=== PATIENT | female | born 1965 | race African-American/Black ===

== ENCOUNTER 2020-10-26 23:11 | Inpatient (IN) | payer MEDICARE, MEDICAID ==
[~2020-10-26] VITALS: Ht 170.2 cm; Wt 145.3 kg
[2020-10-26] MEDS ORDERED: LEVETIRACETAM 1000MG PREMIX 100 ML IV ONE (23:45)
[2020-10-27 00:38] LABS: BASOPHILS % 0.5 % (0.0-2.0); EOSINOPHILS % 0.6 % (0.0-5.0); HEMATOCRIT. 32.5 % (36.0-48.0); HEMOGLOBIN. 10.6 g/dL (12.0-16.0); LYMPHOCYTES % 8.5 % (20.0-50.0); MEAN CORPUSCULAR HEMOGLOBIN 26.9 pg (28.0-32.0); MEAN CORPUSCULAR VOLUME 82.2 fL (81.0-99.0); MEAN PLATELET VOLUME 7.6 fl (7.4-10.4); NEUTROPHILS % 83.4 % (40.0-76.0); PLATELET 374 x1000/uL (130-400); RED BLOOD CELL COUNT 3.95 mill/uL (4.2-5.4); RED CELL DISTRIBUTION WIDTH 16.5 % (11.6-14.6)
[2020-10-27 00:41] LABS: CHLORIDE 109 mEq/L (98-107)
[2020-10-27 00:48] LABS: ETHANOL BLOOD < 10 mg/dL
[2020-10-27 01:02] LABS: CLARITY URINE CLEAR (CLEAR); COLOR URINE DARK YELLOW (YELLOW); KETONES URINE 1+ (NEGATIVE); LEUKOCYTE ESTERASE URINE TRACE (NEGATIVE); NITRITE URINE NEGATIVE (NEGATIVE); OCCULT BLOOD URINE TRACE (NEGATIVE); PROTEIN URINE 2+ (NEGATIVE); SPECIFIC GRAVITY URINE 1.026 (1.005-1.030)
[2020-10-27 03:45] LABS: *AMPHETAMINES SCREEN URINE NEGATIVE (NEGATIVE); *BARBITURATES SCREEN URINE NEGATIVE (NEGATIVE); *BENZODIAZEPINES SCREEN URINE PRESUMTIVE POSITIVE (NEGATIVE); *COCAINE SCREEN URINE NEGATIVE (NEGATIVE); CANNABINOID URINE SCREEN NEGATIVE (NEGATIVE); METHADONE URINE SCREEN NEGATIVE (NEGATIVE); OPIATES URINE SCREEN PRESUMTIVE POSITIVE (NEGATIVE); PHENCYCLIDINE URINE SCREEN NEGATIVE (NEGATIVE)
[2020-10-27] MEDS ORDERED: APIX5TAB PO (05:56)
[2020-10-27] MEDS ORDERED: LEVO50TA PO (05:56)
[2020-10-27] MEDS ORDERED: ACETAMINOPHEN 325MG TABLET PO PRN ×2 (06:00)
[2020-10-27] MEDS ORDERED: ONDANSETRON HCL 4MG/2ML INJ IV PRN (06:00)
[2020-10-27] MEDS: LEVOTHYROXINE SODIUM 50MCG TABLET PO SCH (06:30)
[2020-10-27] MEDS ORDERED: APIXABAN 5 MG TABLET PO SCH (09:00)
[2020-10-27 13:00] VITALS: BP 189/93
[2020-10-27] MEDS ORDERED: HYDRALAZINE 20MG/ML VIAL IV PRN (13:15)
[2020-10-27] MEDS: APIXABAN 5 MG TABLET PO SCH ×2 (13:15→22:05)
[2020-10-27] MEDS ORDERED: LOSA100T32 PO (13:29)
[2020-10-27] MEDS ORDERED: METO-539 PO (13:29)
[2020-10-27] MEDS ORDERED: HYDRALAZINE HCL 25MG TABLET PO PRN (13:30)
[2020-10-27] MEDS: LOSARTAN POTASSIUM 100 MG TABLET PO SCH (13:44)
[2020-10-27] MEDS: METOPROLOL TARTRATE 50MG TABLET PO SCH ×2 (14:02→22:05)
[2020-10-27] MEDS ORDERED: NIFE90TA47 PO (17:19)
[2020-10-27] MEDS: HYDRALAZINE 20MG/ML VIAL IV PRN (19:03)
[2020-10-27 20:00] VITALS: BP_SYST 124; BP_SYST 179; BP_DIAS 94; BP_DIAS 98
[2020-10-27] MEDS: LEVETIRACETAM 500MG TABLET PO SCH (22:47)
[2020-10-28] VITALS: BP 154/89
[2020-10-28 04:00] VITALS: BP 169/60
[2020-10-28] MEDS: HYDRALAZINE 20MG/ML VIAL IV PRN ×3 (04:26→17:26)
[2020-10-28] MEDS: LEVOTHYROXINE SODIUM 50MCG TABLET PO SCH (05:40)
[2020-10-28 08:00] VITALS: BP 167/77
[2020-10-28] MEDS: LOSARTAN POTASSIUM 100 MG TABLET PO SCH (08:46)
[2020-10-28] MEDS: METOPROLOL TARTRATE 50MG TABLET PO SCH (08:46)
[2020-10-28] MEDS: LEVETIRACETAM 500MG TABLET PO SCH (08:46)
[2020-10-28] MEDS: APIXABAN 5 MG TABLET PO SCH (08:46)
[2020-10-28] MEDS ORDERED: POTASSIUM CHLORIDE 20MEQ TABLET SR PO NR (09:45)
[2020-10-28 12:00] VITALS: BP 174/74
[2020-10-28] MEDS ORDERED: KEPP500 PO (14:49)
[2020-10-28 16:00] VITALS: BP 146/65
[2020-10-28 16:30] LABS: CHLORIDE 108 mEq/L (98-107)
[2020-10-28 16:33] LABS: BASOPHILS % 1.1 % (0.0-2.0); EOSINOPHILS % 2.2 % (0.0-5.0); HEMATOCRIT. 28.6 % (36.0-48.0); HEMOGLOBIN. 9.7 g/dL (12.0-16.0); LYMPHOCYTES % 20.4 % (20.0-50.0); MEAN CORPUSCULAR HEMOGLOBIN 28.4 pg (28.0-32.0); MEAN CORPUSCULAR VOLUME 83.9 fL (81.0-99.0); MEAN PLATELET VOLUME 8.4 fl (7.4-10.4); MONOCYTES % 9.4 % (2.0-8.0); NEUTROPHILS % 66.9 % (40.0-76.0); PLATELET 288 x1000/uL (130-400); RED BLOOD CELL COUNT 3.41 mill/uL (4.2-5.4); RED CELL DISTRIBUTION WIDTH 16.7 % (11.6-14.6)
[2020-10-28] MEDS ORDERED: NIFE90TA60 PO (16:33)
[2020-10-28] MEDS ORDERED: COLC0.6C3 PO (16:34)
[2020-10-28] MEDS ORDERED: MYCOC15 TOP (16:35)
[2020-10-28] MEDS ORDERED: HYDR100T31 PO (16:35)
[2020-10-28 16:36] LABS: PHOSPHORUS 2.8 mg/dL (2.5-4.9)
[2020-10-28] MEDS ORDERED: HYDR-4009 PO (16:36)
[2020-10-28] MEDS ORDERED: DOCU-150 PO (16:36)
[2020-10-28] MEDS ORDERED: ESOM40SU PO (16:37)
[2020-10-28] MEDS ORDERED: AMIT150T PO (16:37)
[2020-10-28 16:38] LABS: HDL CHOLESTEROL 47 mg/dL (40-59); LDL CHOLESTEROL 84 mg/dL (5-100)
[2020-10-28] MEDS ORDERED: ATOR10TA PO ×3 (16:43→16:47)
[2020-10-28 17:55] VITALS: BP 140/83
[2020-10-28] MEDS ORDERED: ATORVASTATIN CALCIUM 10MG TABLET PO SCH (21:00)
[2020-10-30] MEDS ORDERED: PNEUMOCOCCAL 23-VAL P-SAC VAC 0.5 ML IM ONE (09:00)
== END 2020-10-28 18:48 | disposition home or self-care (01) | DRG 101 ==
LOC: ER 23:37 → MICUSO 10-27 01:38 → EDBEDREQTM 10-27 01:44 → EDBEDREQ 10-27 01:44 → EDBEDREQDT 10-27 01:44 → 7EST 10-27 09:56
PROVIDERS: ADMIT Internal Medicine; ATTEND Internal Medicine
PROC: 4A10X4Z Monitoring of Central Nervous Electrical Activity, External Approach (ICD-10-PCS; principal; 2020-10-28)
DX: G40.409 Other generalized epilepsy and epileptic syndromes, not intractable, without status epilepticus (principal); D68.9 Coagulation defect, unspecified; Z68.43 Body mass index [BMI] 50.0-59.9, adult; I10 Essential (primary) hypertension; M79.7 Fibromyalgia; F32.9 Major depressive disorder, single episode, unspecified; G89.4 Chronic pain syndrome; E66.01 Morbid (severe) obesity due to excess calories; M32.9 Systemic lupus erythematosus, unspecified; Z88.6 Allergy status to analgesic agent; Z79.899 Other long term (current) drug therapy; Z79.01 Long term (current) use of anticoagulants; Z79.890 Hormone replacement therapy; M10.9 Gout, unspecified
CPT/HCPCS: 36415; 71045; 80053; 80061; 80305; 80320; 81003; 82140; 82962; 83735; 83880; 84100; 84484; 85025; 85379; 93005; 95816; 99285; C1893; J0360; J1953; G0480